=== PATIENT | male | born 1980 | race Hispanic/Latino ===

== ENCOUNTER 2023-10-11 10:21 | Inpatient (IN) | payer OTHER ==
[~2023-10-11] VITALS: Ht 165.1 cm; Wt 88.4 kg
[2023-10-11] MEDS: LACTATED RINGERS 1000ML 1,000 ML IV ONE (10:33)
[2023-10-11] MEDS: KETOROLAC 15MG/ML VIAL (15MG/ML) IV ONE (10:34)
[2023-10-11] MEDS: ONDANSETRON 4MG INJ IVP ONE (10:34)
[2023-10-11] MEDS: MORPHINE 4 MG SYG IVP ONE (10:34)
[2023-10-11 10:38] LABS: BASOPHILS # (AUTO) 0.03 K/uL (0.00-0.20); BASOPHILS % (AUTO) 0.2 % (0.0-5.0); EOSINOPHILS # (AUTO) 0.06 K/uL (0.00-0.70); EOSINOPHILS % (AUTO) 0.5 % (0.0-8.0); HEMATOCRIT 42.5 % (42-54); IMMATURE GRANULOCYTE ABSOLUTE 0.05 K/uL (0-1); LYMPHOCYTES # (AUTO) 1.7 K/uL (1.0-4.8); LYMPHOCYTES % (AUTO) 14.2 % (21.0-51.0); MEAN CORPUSCULAR HGB CONC 36.2 g/dL (32.0-36.0); MEAN CORPUSCULAR VOLUME 88.4 fL (79-99); MONOCYTES % (AUTO) 7.9 % (3.0-13.0); NEUTROPHILS # (AUTO) 9.4 K/uL (1.8-7.7); NEUTROPHILS % (AUTO) 76.8 % (40.0-77.0); PLATELET COUNT (AUTO) 204 K/uL (130-400); RED BLOOD CELL COUNT(AUTO) 4.81 MIL/uL (4.50-6.20); RED CELL DISTRIBUTION WIDTH 11.9 % (11.0-15.5); WHITE BLOOD COUNT (AUTO) 12.3 K/uL (4.8-10.8)
[2023-10-11 10:54] LABS: CREATININE 1.3 mg/dL (0.5-1.3); POTASSIUM 4.2 mmol/L (3.5-5.1)
[2023-10-11 11:03] LABS: ALBUMIN 3.6 g/dL (3.5-5.0); BILIRUBIN,TOTAL 1.7 mg/dL (0.2-1.0); TOTAL PROTEIN, SERUM 8.4 g/dL (6.0-8.3)
[2023-10-11] MEDS: ZOSYN 3.375GM +NS 50ML IV SCH (12:30)
[2023-10-11] MEDS ORDERED: ACETAMINOPHEN 325 MG TAB PO PRN (12:30)
[2023-10-11 12:37] LABS: APPEARANCE,URINE CLEAR (CLEAR); BILIRUBIN,URINE NEGATIVE (NEGATIVE); COLOR,URINE YELLOW (YELLOW); GLUCOSE, URINE (UA) NEGATIVE (NEGATIVE); KETONES,URINE 5 mg/dL (NEGATIVE); LEUKOCYTE ESTERASE ,URINE 75 Leu/uL (NEGATIVE); NITRATE,URINE NEGATIVE (NEGATIVE); OCCULT BLOOD,URINE NEGATIVE (NEGATIVE); PROTEIN,URINE 30 mg/dL (NEGATIVE)
[2023-10-11 12:45] LABS: ADD UA MICROSCOPIC YES
[2023-10-11 13:09] LABS: BACTERIA,URINE RARE /HPF (None Seen); MUCUS,URINE RARE LPF (None Seen); SQUAMOUS EPITHELIAL CELL,UR RARE /HPF (0-2)
[2023-10-11] MEDS: LACTATED RINGERS 1000ML 1,000 ML IV SCH (13:21)
[2023-10-11] MEDS: ZOSYN 3.375GM +NS 50ML IV ONE (13:21)
[2023-10-11 17:30] VITALS: BP 112/51; PULSE 71; RESP 18
[2023-10-11 17:40] VITALS: O2SAT 100
[2023-10-11 19:43] VITALS: O2SAT 100
[2023-10-11 19:45] VITALS: O2SAT 96
[2023-10-11] MEDS ORDERED: DIATR MEGLU/DIATRIZOATE SODIUM 30 ML BOTTLE ONE (19:49)
[2023-10-11 20:00] VITALS: BP 95/53; PULSE 64; RESP 16
[2023-10-11] MEDS: ONDANSETRON 4MG INJ IVP PRN (20:23)
[2023-10-11] MEDS: FAMOTIDINE 20MG VIAL IV SCH (20:24)
[2023-10-11] MEDS: MORPHINE 2 MG SYG IVP PRN (20:26)
[2023-10-11] MEDS ORDERED: IOHEXOL 350 MG/ML 100ML INFUS..BTL IV ONE (22:39)
[2023-10-12] VITALS (27 sets, daily range): BP systolic 96–126; BP diastolic 49–76; PULSE 50–84; RESP 13–20; O2SAT 96–97
[2023-10-12] MEDS ORDERED: SUCCINYLCHOLINE CHLORIDE 20 MG/ML 10 ML VIAL ONE (09:27)
[2023-10-12] MEDS ORDERED: LIDOCAINE PF 100MG/5ML (2%) SYRINGE 5ML ONE (09:27)
[2023-10-12] MEDS ORDERED: GLYCOPYRROLATE 0.2 MG/ML 5 ML VIAL ONE (09:28)
[2023-10-12] MEDS ORDERED: ROCURONIUM BROMIDE 10MG/1ML 5ML VL ONE ×2 (09:28→10:14)
[2023-10-12] MEDS ORDERED: FENTANYL CITRATE PF 50 MCG/1 ML 2ML VIAL ONE (09:28)
[2023-10-12] MEDS ORDERED: PROPOFOL 10 MG/ML 20ML VIAL IV ONE (09:28)
[2023-10-12] MEDS ORDERED: DEXAMETHASONE SOD PHOSPHATE 10MG/ML 1ML VIAL ONE (09:28)
[2023-10-12] MEDS ORDERED: NEOSTIGMINE METHYLSULFATE 1MG/ML IV ONE (09:28)
[2023-10-12] MEDS ORDERED: ONDANSETRON 4MG INJ ONE (09:28)
[2023-10-12] MEDS ORDERED: MIDAZOLAM HCL 1 MG/ML 2ML VIAL ONE (09:28)
[2023-10-12] MEDS: CEFAZOLIN SODIUM 1 GM VIAL ONE (10:21)
[2023-10-12] MEDS: BUPIVACAINE/PF 0.25% 30ML VIAL IJ ONE (10:22)
[2023-10-12] MEDS: LIDOCAINE 1%-EPI 1:100,000 20 ML VIAL ONE (10:23)
[2023-10-12] MEDS ORDERED: MEPERIDINE-PF 25 MG/ML SYG ONE (10:38)
[2023-10-12] MEDS: SUGAMMADEX SODIUM 200 MG/2 ML VIAL IV ONE (10:54)
[2023-10-12] MEDS: MEPERIDINE-PF 25 MG/ML SYG ONE ×2 (11:19→11:28)
[2023-10-12] MEDS ORDERED: OXYCODONE/ACETAMIN 5/325MG TAB PO PRN (16:30)
[2023-10-12] MEDS: HYDROMORPHONE 1 MG INJ IVP PRN (16:38)
[2023-10-12] MEDS: KETOROLAC 30MG VIAL (30MG/ML) IVP SCH (19:40)
[2023-10-12] MEDS ORDERED: SIMETHICONE 80 MG TAB.CHEW PO PRN (21:00)
[2023-10-12] MEDS: SIMETHICONE 80 MG TAB.CHEW ONE (21:04)
[2023-10-13] VITALS (8 sets, daily range): BP systolic 102–137; BP diastolic 62–76; PULSE 70–89; RESP 18–20; O2SAT 93–97
[2023-10-13 05:47] LABS: BASOPHILS # (AUTO) 0.02 K/uL (0.00-0.20); BASOPHILS % (AUTO) 0.2 % (0.0-5.0); EOSINOPHILS # (AUTO) 0.03 K/uL (0.00-0.70); EOSINOPHILS % (AUTO) 0.3 % (0.0-8.0); HEMATOCRIT 40.4 % (42-54); IMMATURE GRANULOCYTE ABSOLUTE 0.04 K/uL (0-1); LYMPHOCYTES # (AUTO) 0.8 K/uL (1.0-4.8); LYMPHOCYTES % (AUTO) 8.6 % (21.0-51.0); MEAN CORPUSCULAR HEMOGLOBIN 32.3 pg (27.0-33.0); MEAN CORPUSCULAR HGB CONC 36.1 g/dL (32.0-36.0); MEAN CORPUSCULAR VOLUME 89.4 fL (79-99); MONOCYTES # (AUTO) 0.7 K/uL (0.1-1.0); MONOCYTES % (AUTO) 8.2 % (3.0-13.0); NEUTROPHILS # (AUTO) 7.4 K/uL (1.8-7.7); NEUTROPHILS % (AUTO) 82.3 % (40.0-77.0); PLATELET COUNT (AUTO) 202 K/uL (130-400); RED BLOOD CELL COUNT(AUTO) 4.52 MIL/uL (4.50-6.20); RED CELL DISTRIBUTION WIDTH 11.6 % (11.0-15.5)
[2023-10-13 06:24] LABS: ALBUMIN 3.3 g/dL (3.5-5.0); BILIRUBIN,TOTAL 1.3 mg/dL (0.2-1.0); CREATININE 1.2 mg/dL (0.5-1.3); MAGNESIUM 2.1 mg/dL (1.80-2.40); PHOSPHORUS 3.1 mg/dL (2.5-4.9); TOTAL PROTEIN, SERUM 8.1 g/dL (6.0-8.3)
[2023-10-13] MEDS: BISACODYL 10 MG SUPP.RECT RC ONE (18:17)
[2023-10-14 03:00] VITALS: BP 113/77; PULSE 67; RESP 18
[2023-10-14 05:33] LABS: BASOPHILS # (AUTO) 0.05 K/uL (0.00-0.20); BASOPHILS % (AUTO) 0.6 % (0.0-5.0); EOSINOPHILS # (AUTO) 0.18 K/uL (0.00-0.70); EOSINOPHILS % (AUTO) 2.2 % (0.0-8.0); HEMATOCRIT 36.9 % (42-54); IMMATURE GRANULOCYTE ABSOLUTE 0.04 K/uL (0-1); LYMPHOCYTES # (AUTO) 1.7 K/uL (1.0-4.8); LYMPHOCYTES % (AUTO) 20.8 % (21.0-51.0); MEAN CORPUSCULAR HEMOGLOBIN 31.5 pg (27.0-33.0); MEAN CORPUSCULAR VOLUME 90.2 fL (79-99); MONOCYTES # (AUTO) 0.8 K/uL (0.1-1.0); MONOCYTES % (AUTO) 9.8 % (3.0-13.0); NEUTROPHILS # (AUTO) 5.4 K/uL (1.8-7.7); NEUTROPHILS % (AUTO) 66.1 % (40.0-77.0); PLATELET COUNT (AUTO) 207 K/uL (130-400); RED BLOOD CELL COUNT(AUTO) 4.09 MIL/uL (4.50-6.20); RED CELL DISTRIBUTION WIDTH 11.6 % (11.0-15.5); WHITE BLOOD COUNT (AUTO) 8.1 K/uL (4.8-10.8)
[2023-10-14 05:51] LABS: ALBUMIN 2.9 g/dL (3.5-5.0); CREATININE 1.2 mg/dL (0.5-1.3); POTASSIUM 3.9 mmol/L (3.5-5.1); TOTAL PROTEIN, SERUM 7.3 g/dL (6.0-8.3)
[2023-10-14 08:00] VITALS: BP 118/75; PULSE 65; RESP 16; O2SAT 93
[2023-10-14 11:58] VITALS: BP 116/73; PULSE 92; RESP 14
[2023-10-14] MEDS: ACETAMINOPHEN 325 MG TAB PO PRN (14:54)
== END 2023-10-14 15:40 | disposition home or self-care (01) | DRG 419 ==
LOC: EDH 10:21 → EDHIP 12:19 → 3BH 16:28
PROVIDERS: ADMIT Hospitalist; ATTEND Hospitalist
PROC: 0FT44ZZ Resection of Gallbladder, Percutaneous Endoscopic Approach (ICD-10-PCS; principal; 2023-10-12 09:39)
DX: K80.00 Calculus of gallbladder with acute cholecystitis without obstruction (principal); K82.A1 Gangrene of gallbladder in cholecystitis; K59.00 Constipation, unspecified
CPT/HCPCS: 36415; 74178; 76705; 80053; 81001; 83605; 83690; 83735; 84100; 85025; 87040; 87088; 88304; 96365; 96375; G0378; J0330; J0690; J1100; J1170; J1885; J2001; J2175; J2250; J2270; J2405; J2543; J2704; J2710; J3010; J3490; J7030; J7120; Q9963; Q9967; A4215; A4216; A4221; A4222; A4223; A4452; A4600; A4649; A4930; C1769; J0665